=== PATIENT | female | born 1960 | race Caucasian/White ===

== ENCOUNTER 2025-04-24 06:18 | Day surgery (SDC) | payer OTHER, SELFPAY | END 2025-04-24 13:01 | disposition home or self-care (01) | LOC: GI 06:18 | PROVIDERS: ATTENDING PHYSICIAN Internal Medicine Gastroenterology | DX: Z12.11 Encounter for screening for malignant neoplasm of colon (principal); Z83.719 Family history of colon polyps, unspecified; K64.8 Other hemorrhoids | CPT/HCPCS: G0105 ==